=== PATIENT | female | born 1955 | race Caucasian/White ===

== ENCOUNTER 2018-07-31 08:29 | Day surgery (SDC) | payer OTHER ==
[~2018-07-31 08:29] MED LIST: LIDOCAINE 2% INJ 100 MG/5 ML SDV (FOR ANES.) As Ordered; PROPOFOL 200 MG/20 ML VIAL As Ordered
[2018-07-31] MEDS ORDERED: NS 1,000 ML IV (08:45)
== END 2018-07-31 09:59 | disposition home or self-care (01) ==
LOC: M OPP 08:29
DX: Z12.11 Encounter for screening for malignant neoplasm of colon (principal); K64.0 First degree hemorrhoids; I10 Essential (primary) hypertension; R21 Rash and other nonspecific skin eruption; F41.9 Anxiety disorder, unspecified; Z78.0 Asymptomatic menopausal state; Z80.0 Family history of malignant neoplasm of digestive organs; Z87.891 Personal history of nicotine dependence; Z88.0 Allergy status to penicillin; Z79.899 Other long term (current) drug therapy
CPT/HCPCS: 45378

== ENCOUNTER → 2020-12-01 | Outpatient (CLI) | payer OTHER ==
[~2020-12-01] MED LIST changes: +ATEN50TA2 PO; +CALC1TAB55 PO; -LIDOCAINE 2% INJ 100 MG/5 ML SDV (FOR ANES.) As Ordered; +OMEG10002 PO; -PROPOFOL 200 MG/20 ML VIAL As Ordered; +VITA10006 PO; +VITA100067 PO
--- NOTE | 2020-12-01 16:10 | REP ---
INDICATION: PAIN COMPARISON: None. TECHNIQUE: AP, lateral, bilateral oblique views left hand. FINDINGS: Generalized age-related changes are appreciated. Possible old injury to the 2nd distal phalanx suggested. No acute fracture or dislocation. No significant overt osteoarthritic or inflammatory arthritic changes appreciated. IMPRESSION: Generalized age-related changes. No acute fracture or dislocation. <Electronically signed by Jose Flanagan > 12/01/20 [id number]
== END ==
LOC: M WUC 15:29
PROVIDERS: ATTEND Physician Assistant
DX: M79.642 Pain in left hand (principal)

== ENCOUNTER → 2022-09-30 | Outpatient (CLI) | payer OTHER ==
[~2022-09-30] MED LIST changes: +AMLO1TAB25 PO; +LISI10TA24 PO; +PROBCAP14 PO; +QUER500C PO; +SERT50TA29 PO; +VITA100093 PO; +VITA500C19 PO; +ZINC220CA PO; +ZYZOL
== END ==
LOC: M LABSMTC 10:32
PROVIDERS: ATTEND Anesthesiology
DX: Z01.818 Encounter for other preprocedural examination (principal); Z20.822 Contact with and (suspected) exposure to COVID-19

== ENCOUNTER 2022-10-05 06:30 | Day surgery (SDC) | payer OTHER ==
[~2022-10-05] VITALS: Ht 160 cm; Wt 85.8 kg
[~2022-10-05 06:30] MED LIST changes: +CLINDAMYCIN 900 MG in IV 1 EA IV ONE; +HEPARIN SOD (PORCINE) 5000UNITS/ML 1ML VIAL/SYRINGE SQ ONE; +NS 1,000 ML IV ONE
[2022-10-05] MEDS ORDERED: LR 1,000 ML IV SCH ×2 (07:40→12:30)
[2022-10-05] MEDS ORDERED: fentaNYL 100 MCG/2 ML INJECTION As Ordered ONE (08:53)
[2022-10-05] MEDS ORDERED: MIDAZOLAM INJ 2MG/2ML VIAL As Ordered ONE (08:54)
[2022-10-05] MEDS ORDERED: ROCURONIUM BROMIDE 50MG/5ML VIAL As Ordered ONE (08:55)
[2022-10-05] MEDS ORDERED: propofoL 200 MG/20 ML VIAL As Ordered ONE (08:55)
[2022-10-05] MEDS ORDERED: LIDOCAINE 2% 100MG/5ML SDV (FOR ANES.) As Ordered ONE (08:55)
[2022-10-05] MEDS ORDERED: ONDANSETRON 4MG 2ML VIAL As Ordered ONE (08:56)
[2022-10-05] MEDS ORDERED: ACETAMINOPHEN 1000MG 100ML IV BAG As Ordered ONE (09:32)
[2022-10-05] MEDS ORDERED: SUCCINYLCHOLINE 100MG/5ML SYRINGE As Ordered ONE (09:34)
[2022-10-05] MEDS ORDERED: HYDROmorphone HCL 2MG/ML 1ML VIAL As Ordered ONE (10:32)
[2022-10-05] MEDS ORDERED: LIDOCAINE 1% SDV 30ML VIAL As Ordered ONE (12:25)
[2022-10-05] MEDS ORDERED: BUPIVACAINE HCL 0.25% 30ML VIAL As Ordered ONE (12:26)
[2022-10-05] MEDS ORDERED: oxyCODONE 5MG TAB PO PRN (12:30)
[2022-10-05] MEDS ORDERED: MORPHINE 2 MG/ML 1ML VIAL IV PRN (12:30)
[2022-10-05] MEDS ORDERED: ONDANSETRON 4MG 2ML VIAL IV PRN (12:30)
[2022-10-05] MEDS ORDERED: fentaNYL 100 MCG/2 ML INJECTION IV PRN (12:30)
[2022-10-05] MEDS ORDERED: ROXI15TA12 PO (12:41)
[2022-10-05] MEDS ORDERED: TRAM50TA2 PO (12:43)
[2022-10-05 14:05] VITALS: BP 119/80
== END 2022-10-05 14:10 | disposition home or self-care (01) ==
LOC: M SDC 06:30
PROVIDERS: ATTEND Surgery
DX: C50.911 Malignant neoplasm of unspecified site of right female breast (principal); M32.9 Systemic lupus erythematosus, unspecified; I10 Essential (primary) hypertension; R21 Rash and other nonspecific skin eruption; F41.9 Anxiety disorder, unspecified; Z79.899 Other long term (current) drug therapy; Z88.0 Allergy status to penicillin; Z80.3 Family history of malignant neoplasm of breast; Z87.891 Personal history of nicotine dependence; Z80.1 Family history of malignant neoplasm of trachea, bronchus and lung; Z80.8 Family history of malignant neoplasm of other organs or systems; Z88.8 Allergy status to other drugs, medicaments and biological substances; Z80.0 Family history of malignant neoplasm of digestive organs
CPT/HCPCS: 19125; 36415; 38525; 76942; 78195; 86850; 86900; 86901; 88307; A4648; A9520; J0330; J1100; J1170; J2405

== ENCOUNTER → 2022-11-01 | Outpatient (CLI) | payer OTHER ==
[~2022-11-01] MED LIST changes: -CLINDAMYCIN 900 MG in IV 1 EA IV ONE; -HEPARIN SOD (PORCINE) 5000UNITS/ML 1ML VIAL/SYRINGE SQ ONE; +LETR2.5T2 PO; -NS 1,000 ML IV ONE; +ROXI15TA12 PO; +TRAM50TA2 PO
== END ==
LOC: M ONCR 10:28
PROVIDERS: ATTEND General Practice
DX: C50.311 Malignant neoplasm of lower-inner quadrant of right female breast (principal); E78.5 Hyperlipidemia, unspecified; I10 Essential (primary) hypertension; Z80.0 Family history of malignant neoplasm of digestive organs; Z80.1 Family history of malignant neoplasm of trachea, bronchus and lung; Z80.3 Family history of malignant neoplasm of breast; Z87.891 Personal history of nicotine dependence; Z88.0 Allergy status to penicillin

== ENCOUNTER → 2022-11-10 | Outpatient (CLI) | payer OTHER | LOC: M WHC 12:50 | PROVIDERS: ATTEND Internal Medicine Medical Oncology | DX: Z13.828 Encounter for screening for other musculoskeletal disorder (principal); C50.911 Malignant neoplasm of unspecified site of right female breast; M85.89 Other specified disorders of bone density and structure, multiple sites ==

== ENCOUNTER 2022-11-15 10:06 | Outpatient (RCR) | payer OTHER | END 2022-11-30 | LOC: M ONCR 10:06 | PROVIDERS: ATTEND General Practice | DX: C50.312 Malignant neoplasm of lower-inner quadrant of left female breast (principal) ==

== ENCOUNTER 2022-12-10 07:51 | Outpatient (RCR) | payer MEDICARE, OTHER ==
[2022-12-17] MEDS ORDERED: LETR2.5T2 PO (13:43)
== END 2022-12-31 ==
LOC: M ONCR 07:51
PROVIDERS: ATTEND General Practice
DX: C50.311 Malignant neoplasm of lower-inner quadrant of right female breast (principal)

== ENCOUNTER → 2023-05-31 | Outpatient (CLI) | payer OTHER | LOC: M WHC 11:28 | PROVIDERS: ATTEND Nurse Practitioner Women's Health | DX: C50.911 Malignant neoplasm of unspecified site of right female breast (principal) | CPT/HCPCS: 77066; G0279 ==

== ENCOUNTER → 2023-06-14 | Outpatient (CLI) | payer MEDICARE, OTHER | LOC: M ONCR 08:42 | PROVIDERS: ATTEND General Practice | DX: C50.311 Malignant neoplasm of lower-inner quadrant of right female breast (principal); Z71.2 Person consulting for explanation of examination or test findings; Z79.810 Long term (current) use of selective estrogen receptor modulators (SERMs); Z79.899 Other long term (current) drug therapy; Z87.891 Personal history of nicotine dependence; Z88.0 Allergy status to penicillin; Z88.1 Allergy status to other antibiotic agents; Z92.3 Personal history of irradiation ==

== ENCOUNTER → 2023-07-08 | Outpatient (CLI) | payer MEDICARE | LOC: M WUC 09:32 | PROVIDERS: ATTEND Student in an Organized Health Care Education/Training Program | DX: S20.212A Contusion of left front wall of thorax, initial encounter (principal); X58.XXXA Exposure to other specified factors, initial encounter; Y92.9 Unspecified place or not applicable; Y93.9 Activity, unspecified; Y99.9 Unspecified external cause status ==

== ENCOUNTER → 2023-12-21 | Outpatient (CLI) | payer MEDICARE | LOC: M ONCR 08:48 | PROVIDERS: ATTEND General Practice | DX: Z08 Encounter for follow-up examination after completed treatment for malignant neoplasm (principal); Z85.3 Personal history of malignant neoplasm of breast; M25.50 Pain in unspecified joint; Z71.2 Person consulting for explanation of examination or test findings; Z79.811 Long term (current) use of aromatase inhibitors; Z79.899 Other long term (current) drug therapy; Z87.891 Personal history of nicotine dependence; Z88.0 Allergy status to penicillin; Z88.1 Allergy status to other antibiotic agents; Z92.3 Personal history of irradiation; Z98.890 Other specified postprocedural states ==

== ENCOUNTER → 2024-11-12 | Outpatient (CLI) | payer MEDICARE ==
[~2024-11-12] MED LIST changes: +ALIG4CAP3 PO; +ANAS1TAB2 PO; +EXEM25TA PO; +LEVOTAB10 PO; -VITA500C19 PO; +VITA500C22 PO
== END ==
LOC: M WHC 10:36
PROVIDERS: ATTEND Internal Medicine Medical Oncology
DX: M85.89 Other specified disorders of bone density and structure, multiple sites (principal)

== ENCOUNTER → 2025-01-02 | Outpatient (CLI) | payer MEDICARE | LOC: M ONCR 10:05 | PROVIDERS: ATTEND General Practice | DX: Z08 Encounter for follow-up examination after completed treatment for malignant neoplasm (principal); Z85.3 Personal history of malignant neoplasm of breast; Z79.811 Long term (current) use of aromatase inhibitors; Z92.3 Personal history of irradiation; Z98.890 Other specified postprocedural states; Z87.891 Personal history of nicotine dependence; Z88.0 Allergy status to penicillin; Z88.1 Allergy status to other antibiotic agents; Z79.899 Other long term (current) drug therapy ==

== ENCOUNTER → 2025-08-06 | Outpatient (REF) | payer MEDICARE ==
[2025-08-08 09:53] LABS: HPV APTIMA Not Detected (Not Detected)
== END ==
LOC: M PLALAB 16:20
PROVIDERS: ATTEND Physician Assistant
DX: Z12.4 Encounter for screening for malignant neoplasm of cervix (principal)
CPT/HCPCS: 87624; G0123; G0463